=== PATIENT | female | born 1945 | race Caucasian/White ===

== ENCOUNTER 2024-02-17 14:00 | Inpatient (IN) | payer MEDICARE, SELFPAY ==
[2024-02-17] VITALS (26 sets, daily range): BP systolic 78–119; BP diastolic 51–98; BMI 28.0; BMI 27.1
[2024-02-17 10:49] LABS: % Basophils 0.4 % (0-2); % Eosinophils 2.1 % (0-6); % Immature Granulocytes 0.4 % (0-0.5); % Monocytes 7.9 % (1.7-9.3); % Neutrophils 54.2 % (42.2-75.2); Absolute Eosinophils 0.1 10^3/uL (0-0.7); Absolute Monocytes 0.5 10^3/uL (0.1-0.6); Absolute Neutrophils 3.1 10^3/uL (1.4-6.5); Hematocrit 40.7 % (37.0-47.0); Mean Corp Hgb Conc. 34.4 g/dL (33.0-37.0); Mean Corpuscular Volume 87.2 fL (81.0-99.0); Mean Platelet Volume 9.7 fL (7.4-10.4); Nucleated Red Blood Cells % 0 %; Platelet Count 192 10^3/uL (130-400); Red Blood Cell Count 4.67 10^6/uL (4.20-5.40); Red Cell Dist. Width 13.7 % (11.5-14.5); White Blood Cell Count 5.7 10^3/uL (4.8-10.8)
[2024-02-17 11:22] LABS: ALT (SGPT) 26 U/L (0-35); AST (SGOT) 25 U/L (14-36); Albumin 4.5 g/dl (3.5-5.0); Alkaline Phosphatase 43 U/L (38-126); Blood Urea Nitrogen 21 mg/dl (7-17); Calcium 9.4 mg/dl (8.4-10.2); Carbon Dioxide 22 mmol/L (22-30); Chloride 109 mmol/L (98-107); Estimated Creatinine Clearance 44 ml/min; Glucose 107 mg/dl (70-99); Potassium 4.2 mmol/L (3.5-5.1); Sodium 144 mmol/L (135-145); Total Bilirubin 0.8 mg/dl (0.2-1.3); eGFR > 60.00
--- NOTE | 2024-02-17 11:31 | ED.GENMED ---
History of Present Illness
General
Chief Complaint: Chest Pain
Source: patient
Time Seen by Provider: 02/17/24 11:11
History of Present Illness
History of Present Illness:
78-year-old female presents to the emergency room complaining of chest discomfort. Symptoms began about 30 minutes ago. Symptoms are much better at this time. Denies any patient is not aware of a rapid heart rate. Associated nausea or shortness
of breath. Typically patient is able to perform daily activities without any difficulty. No known cardiac disease. She takes only a prescription for heartburn but no other medications.
Phy Exam
Physical Exam
Physical Exam:
General: Awake, Alert, Oriented X3. No acute distress.
Vitals: unremarkable
Head: Atraumatic
Eyes: Pupils equal, EOMI
Throat: Airway intact, no exudates
Neck: Trachea midline
Lungs: Clear and equal b/l
Heart: Tachycardic, irregular rate, no murmurs
Abd: Soft, Nontender, No pulsatile mass
Neuro: Nonfocal
Skin: Warm, dry, no rash
Extremities: pulses equal b/l, no edema
Scores
Heart Score for Chest Pain Patients
STEMI patient?: Not applicable
Course
Orders/Labs/Results
Orders:
Orders
02/17/24 10:07
EKG [Electrocardiogram (*1)] Urgent
Reason for Study: Chest Pain
EKG- Treatment ONCE
02/17/24 10:40
Complete Blood Count/With Diff Urgent
Comprehensive Metabolic Panel Urgent
02/17/24 11:30
Diltiazem 125 mg/125 ml Nss [Cardizem] 125 mg in 125 ml IV NOW
Initial dose in mg/hr, then titrate:: 5
Titrate to keep:: Heart rate 80-100 bpm
Titrate by mg/hr:: 5 mg/hr
Frequency of titrations (minutes):: 15
Maximum dose in mg/hr:: 15
Diltiazem HCl [Cardizem] 15 mg IV NOW STA
02/17/24 11:33
CR Chest - 2 Views Urgent
Comment:
Reason For Exam: chest pain
02/17/24 11:38
Troponin I Urgent
02/17/24 13:03
Apixaban [Eliquis] 5 mg PO NOW STA
02/17/24 13:31
Admit/Transfer Patient As Directed
Co-Sign Provider:
Level of Care: Inpatient admission
Assign to:: IVU
Physician / Group: derek
Diagnosis: atrial fib with RVR
Reason for Hospitalization: atrial fib with RVR
Expected length of stay greater than two midnights?: Yes
ELOS- Estimated Length of Stay in days: 3
I certify the patient meets the requirements for IP care: Yes
PRN Pain Medication Management As Directed
May give lesser potent ordered pain med per pt: Yes
preference::
Protocol:: Medication orders for pain may be administered in a
manner that supports deferring to patient preference
when the pt is:
- Requesting an ordered lesser potent pain medication.
Least to most potent pain medications are defined
as: acetaminophen < NSAID < tramadol < opioids
(morphine, oxycodone, hydromorphone).
- Requesting a lesser dose of the same medication IF
ORDERED.
- Requesting a less intrusive route of administration
if both routes are prescribed by the provider (PO <
IV).
02/17/24 13:32
Code Status As Directed
Resuscitation Status: Full Code
Abnormal Lab Results
02/17/24
10:40
Chloride 109 H mmol/L
(98-107)
BUN 21 H mg/dl
(7-17)
Glucose 107 H mg/dl
(70-99)
02/17/24 10:40
02/17/24 10:40
Vital Signs
Initial and Last Documented VS:
Initial Vital Signs
Temp Pulse Resp BP Pulse Ox
98.2 F 125 18 98/59 98
02/17/24 10:15 02/17/24 10:15 02/17/24 10:15 02/17/24 10:15 02/17/24 10:15
Last Documented Vital Signs
Temp Pulse Resp BP Pulse Ox
98.2 F 83 18 92/59 98
02/17/24 10:15 02/17/24 14:30 02/17/24 14:30 02/17/24 14:30 02/17/24 10:15
MDM/Problems Addressed
Differential Diagnosis Includes:
Atrial fibrillation, hydration
MDM/Problems Addressed:
Patient presents with atrial fibrillation with rapid ventricular response. Patient is not anticoagulated. Patient started on Cardizem with adequate heart rate control. 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
believe she is a good candidate for outpatient management. Will hospitalize for rate control, cardiac evaluation, potential cardioversion.
*Radiology
Radiology exam reviewed: radiology read reviewed
*Pulse Oximetry
Patient hypoxic: no
*EKG
Interpreted by ED Provider?: Yes
EKG Intrepretation Time: 01:33
Interpretation: abnormal
Heart Rate: 133
Rate: tachycardiac
Rhythm: a-fib
QRS Pattern: normal QRS
Ischemia: non-specific ST changes
*Neurodiagnostic Technician Interpretation
Rate: tachycardiac
Interpretation: abnormal
Rhythm: a-fib
*Critical Care Note
Total Time (30-74mins, 75-104mins- exclusive of procedures): 35 min
comment:
Critical care statement: A total of 35 minutes of critical care time was provided for this patient. This includes management of unstable vital signs, evaluation of the patient at bedside, reviewing the patient's pertinent medical records, discussion
with consultants, review of old EKGs and review of pertinent medical records. This time with separate from time utilized to perform the aforementioned documented procedures
Patient Management
Social determinants of health affecting care: Poor outpatient follow-up
ED Attending Note
-
Portions of this chart may have been created with voice recognition software.� Occasional wrong word or��sound alike� substitutions may have occurred due to the inherent limitations of voice recognition software.
Discharge Plan
Departure
Patient Disposition: Admit
Date of Disposition: 02/17/24
Time of Disposition: 13:04
Admit to: Telemetry
Presentation/result/management discussed w/ accepting MD/DO: Hospitalist
Condition: Fair
Discharge Problem:
Atrial fibrillation with rapid ventricular response
Interventions
Interventions:
*Risk Screen - Suicide Last Done: 02/17/24 10:43
*General Assessment Last Done: 02/17/24 10:43
*Neglect/Abuse Screening Last Done: 02/17/24 10:43
ED- Fall Risk Assessment Last Done: 02/17/24 14:53
*ED COVID-19 Vaccine History Last Done: 02/17/24 10:43
*Nursing Disposition Last Done: 02/17/24 14:53
ED- Cardiac Assessment Last Done: 02/17/24 10:42
[2024-02-17] MEDS: CARDIZEM 15 MG IV (11:36)
[2024-02-17] MEDS: CARDIZEM 125 IV (11:37)
[2024-02-17 12:08] LABS: Troponin I < 0.012 ng/ml
--- NOTE | 2024-02-17 13:12 | HPS.HSE ---
Family Physician
-
Family Physician: Yanelis Lin
Chief Complaint
-
chest pain
History of Present Illness
78-year-old female with PMH for GERD, aortic aneurysm presents to the emergency room complaining of mid sternum chest pressure which later radiated to her her left arm and shoulder today morning. patient stated nauseous and being sweaty. Patient
complained of weakness and dizzy . Denies any patient is not aware of a rapid heart rate. Patient denies any short of breath. Denied palpitation. Patient denied headache. Patient denied any fever, chills, runny nose, congestion, cough. Patient
denied any abdominal pain, diarrhea. Patient denied dysuria hematuria.
On arrival patient was noted in A-fib with RVR. Initiated on Cardizem drip. Admitting for further management
Medical History
Past Medical History
Past Medical History: Reports Other
Additional Past Medical History:
GERD
Hypothyroidism
Past Surgical History: Reports Other
Additional Past Surgical History:
Hysterectomy appendectomy
Cyst removed from left breast
Social History
Tobacco: Non-smoker
Alcohol: None
Drug: None
Personal:
Living: With Family
Family History
Family History: Other (Mother with heart attack)
Allergies / Home Medications
Allergies reflects when Allergies were last updated in [facility].
Home Medications with original date entered in [facility]
Allergy/Medication List:
Allergies
Allergy/AdvReac Type Severity Reaction Status Date / Time
latex Allergy Unknown Rash Verified 02/17/24 10:20
Review of Systems
-
Constitutional: Reports No Symptoms
EENT: Reports No Symptoms
Respiratory: Reports No Symptoms
Cardiac: Reports Chest Pain and Diaphoresis
Abdomen/GI: Reports No Symptoms
: Reports No Symptoms
Musculoskeletal: Reports No Symptoms
Skin: Reports No Symptoms
Neurological: Reports Dizzy
Endocrine: Reports No Symptoms
Hematologic/Lymphatic: Reports No Symptoms
Psych: Reports No Symptoms
Physical Exam
Vital Signs
Vital Signs
Temp Pulse Resp BP Pulse Ox
98.2 F 98 17 82/61 98
02/17/24 10:15 02/17/24 13:01 02/17/24 13:01 02/17/24 13:01 02/17/24 10:15
Physical Exam
General: Well Developed, Well Nourished and No Apparent Distress
HEENT: NormoCephalic, Moist mucous membranes and Atraumatic
Respiratory: Clear
Cardiac: S1/S2 and Regular Rhythm; No Murmur or Rub
GI: Soft, Non Tender, Non Distended and Normal Bowel Sounds; No Organomegaly
Rectal: Deferred by Provider
Musculoskeletal: No Clubbing, No Cyanosis and No Edema
Skin: No Rash
Neuro: AO x 3 and Nonfocal/grossly intact
Psych: Calm
Laboratory Results
-
02/17/24 10:40
02/17/24 10:40
Laboratory Results
Total Bilirubin 0.8 mg/dl (0.2-1.3) 02/17/24 10:40
AST 25 U/L (14-36) 02/17/24 10:40
ALT 26 U/L (0-35) 02/17/24 10:40
Alkaline Phosphatase 43 U/L (38-126) 02/17/24 10:40
Troponin I < 0.012 ng/ml 02/17/24 11:38
Data Reviewed
-
CT Scan: Report Reviewed by me
Lab Data: Labs Reviewed by me
Impression/Plan
-
# New onset A-fib
-EKG with A-fib with RVR
-Cardizem drip continued
-eliquis continued
-Will obtain TSH level and echocardiogram
-Cardiology consulted
# GERD
-PPI continued
# DVT prophylaxis
-Heparin drip
# CODE STATUS
-Full code
[2024-02-17] MEDS: ELIQUIS 5 MG PO ×2 (13:22→19:31)
--- NOTE | 2024-02-17 14:02 | W.PN.UPDATE ---
Update Note
Progress Note Update
This is an addendum to the H&P written by Keena Briones on 02/17/2024.� Patient seen and examined independently with [employer].
78-year-old female past medical history of aortic aneurysm, GERD, presenting with chest pressure radiating to her arms associated with dizziness and sweating.
She presents to the emergency room with new onset atrial fibrillation with RVR with heart rate of 133 on EKG.� She was started on Cardizem drip.� Troponin negative.� Chest x-ray negative.
[id number] score of 3 due to age and sex. Check TSH, echo, trend troponins.��Eliquis�started.� Cardiology consulted.
[2024-02-17 17:13] LABS: TSH Reflex To Free T4 0.82 uIU/ml (0.47-4.68)
--- NOTE | 2024-02-17 17:16 | PTCARENOTE ---
Patient HR with ambulation to BR 123-140 AFib. Patient is asymptomatic.
--- NOTE | 2024-02-17 18:00 | PTCARENOTE ---
Troponin 0.447, physician made aware.
[2024-02-17 18:25] LABS: Troponin I 0.447 ng/ml
[2024-02-17] MEDS: NSS 500 IV (20:18)
--- NOTE | 2024-02-17 22:35 | PTCARENOTE ---
Received pt at change of shift. Afib on the monitor, HR in the 100-120s. Pts BP 79/58 with no symptoms. Pt instructed to ring call shaffer if she needs to get out of bed, IV Cardizem put in standby. House provider notified, order for IV fluids
obtained. Cardizem resumed at 5mg per hour at 2030. Pt remains in afib in the 90s, last BP at 2200 is 87/53. No complaints from pt at this time, call shaffer within reach
--- NOTE | 2024-02-17 23:27 | PTCARENOTE ---
Patients BP 81/59 with no symptoms. Afib controlled with HR under 100. Cardizem put on standby. IV fluids still infusing
[2024-02-17 23:56] LABS: Troponin I 0.304 ng/ml
[2024-02-18] VITALS (14 sets, daily range): BP systolic 85–121; BP diastolic 52–77
[2024-02-18] MEDS: NSS IV ×2 (03:38→09:42)
[2024-02-18 06:15] LABS: Blood Urea Nitrogen 26 mg/dl (7-17); Calcium 8.6 mg/dl (8.4-10.2); Carbon Dioxide 19 mmol/L (22-30); Chloride 114 mmol/L (98-107); Estimated Creatinine Clearance 58 ml/min; Glucose 95 mg/dl (70-99); HDL Cholesterol 62 mg/dl; LDL Cholesterol, Calculated 90 mg/dl; Potassium 4.4 mmol/L (3.5-5.1); Sodium 145 mmol/L (135-145); Total Cholesterol 170 mg/dl (50-199); Triglyceride 93 mg/dl (10-149); Very Low Density Lipoprotein 18 mg/dl (0-30); eGFR > 60.00
--- NOTE | 2024-02-18 06:46 | W.PN.HOSP.TC ---
Today's Communication/Plan
-
f/w cardiology recommendation
Low Bp, but no symptoms
Assessment / Plan
Assessment / Plan
Physical Exam
General: Well Developed, Well Nourished and No Apparent Distress
HEENT: NormoCephalic, Moist mucous membranes and Atraumatic
Respiratory: Clear
Cardiac: S1/S2 and Regular Rhythm; No Murmur or Rub
GI: Soft, Non Tender, Non Distended and Normal Bowel Sounds; No Organomegaly
Rectal: Deferred by Provider
Musculoskeletal: No Clubbing, No Cyanosis and No Edema
Skin: No Rash
Neuro: AO x 3 and Nonfocal/grossly intact
Psych: Calm
78-year-old female presented with chest discomfort, was found to have atrial fibrillation
#New onset atrial fibrillation.
Patient feels better this morning. No chest pain. She still on Cardizem drip with heart rate around 110-90.
Initial troponin is negative but later trended up to 0.44, then down to 0.304
Patient denied history of cardiac disease, normal TSH.
Low blood pressure with systolic around 90
Order echocardiogram
Started on Eliquis in the ER, might need to hold if a cardiac procedure is planned
Will need further workup
Follow-up with cardiology recommendation
# GERD
-PPI continued
# DVT prophylaxis
-Heparin drip
# CODE STATUS
-Full code
Total time spent to see the patient on the floor, examine the patient, review data and lab results, discuss treatment plan with patient, nursing staff around 55 minutes
Anticipated Discharge: 24 - 48 hours
Subjective/Interval History
-
Date of Service: February 18, 2024
No chest pain
No sob
No abd pain
Objective Data
-
Labs:
Laboratory Results
02/18/24
04:41
WBC Pending
Hgb Pending
Hct Pending
Plt Count Pending
Sodium 145
Potassium 4.4
Chloride 114 H
Carbon Dioxide 19 L
BUN 26 H
Creatinine 0.7
Glucose 95
Calcium 8.6
Vital Signs:
Vital Signs
Temp Pulse Resp BP Pulse Ox
98.3 F 85 18 88/57 93
02/17/24 23:04 02/18/24 04:00 02/17/24 23:04 02/18/24 02:00 02/17/24 23:04
I&O
02/16/24 02/17/24 02/18/24
06:59 06:59 06:59
Intake Total 740 / 740
Balance 740 / 740
[2024-02-18] MEDS: PEPCID 20 MG PO ×2 (08:14→19:58)
[2024-02-18] MEDS: ELIQUIS 5 MG PO ×2 (08:14→19:36)
[2024-02-18 09:03] LABS: Hematocrit 38.1 % (37.0-47.0); Hemoglobin 13.1 g/dL (12.0-16.0); Mean Corp Hgb Conc. 34.4 g/dL (33.0-37.0); Mean Corpuscular Volume 90.1 fL (81.0-99.0); Mean Platelet Volume 10.4 fL (7.4-10.4); Platelet Count 166 10^3/uL (130-400); Red Blood Cell Count 4.23 10^6/uL (4.20-5.40); Red Cell Dist. Width 13.9 % (11.5-14.5); White Blood Cell Count 8.2 10^3/uL (4.8-10.8)
--- NOTE | 2024-02-18 10:41 | PTCARENOTE ---
Pt converted to NSR, HR 70's. EKG obtained. Dr Estrada notified. Pt to remain on 5mg IV Cardizem gtt at this time. BP 102/65.
--- NOTE | 2024-02-18 11:46 | CON.CAR ---
Consultation
Consultation Request
Date/Time Consultation Requested: 02/17/2024 1501
Date/Time Consultation Performed: 02/18/2024 1000
Requesting Provider: BAR Shah
Performing Provider: Grady Murdock DO
Reason for Consultation: AF, CP
Medical History
-
Chief Complaint: AF, CP
History of Present Illness:
Patient is a pleasant 78-year-old female with a past medical history significant for dyslipidemia, metabolic syndrome, thoracic aortic ectasia measuring 41 mm on CTA 2019 who presents with acute onset chest pain, palpitations, shortness of breath,
lightheadedness, and fatigue. Patient reports that she has not experienced symptoms like this before. Patient notes that she was in otherwise good health however experienced sudden onset symptoms. She notes that the symptoms were constant. No
aggravating or alleviating factors associated with the symptoms. Patient denied PND, orthopnea, edema, or syncope. Patient proceeded to ER for further evaluation. EKG initially noted AF RVR. Initial EKG undetectable however increased to 0.447
downtrending to 0.304. Patient with spontaneous return to sinus rhythm on 02/18/2024. In discussion with patient, following judaism of sinus rhythm, patient reported resolution of all symptoms. Patient currently resting comfortably without
complaint. Patient denies chest pain, shortness of breath, lightheadedness, dizziness, near-syncope, syncope, PND, with apnea, edema, or weakness.
Past Medical History
Past Medical History: Other (See HPI)
Social History
Tobacco: Non-Smoker
Alcohol: None
Drug: None
Personal:
Living: With Family
Employment: Retired
Family History
Family History: Reviewed & Not Pertinent
Allergies / Home Medications
Allergy/AdvReac Type Severity Reaction Status Date / Time
latex Allergy Unknown Rash Verified 02/17/24 10:20
�Medication �Instructions �Recorded �Confirmed �Type
Berberine 1 tab PO DAILY Supplement 02/17/24 02/17/24 History
Dha 1 tab PO DAILY Supplement 02/17/24 02/17/24 History
acetylcysteine 600 mg capsule (NAC) 600 mg PO DAILY Supplement 02/17/24 02/17/24 History
alpha lipoic acid 100 mg capsule 100 mg PO DAILY Supplement 02/17/24 02/17/24 History
calcium citrate 200 mg PO DAILY Supplement 02/17/24 02/17/24 History
cyanocobalamin (vitamin B-12) 1,000 mcg PO DAILY Supplement 02/17/24 02/17/24 History
1,000 mcg tablet
famotidine 20 mg tablet 20 mg PO BID Gastrointestinal Issue 02/17/24 02/17/24 History
fexofenadine 180 mg tablet 180 mg PO DAILY Allergies 02/17/24 02/17/24 History
magnesium gluconate 27 mg 27 mg PO DAILY Electrolyte 02/17/24 02/17/24 History
magnesium (500 mg) tablet Repletion
milk thistle 1 tab PO DAILY Supplement 02/17/24 02/17/24 History
vitamin B complex 1 tab PO DAILY Supplement 02/17/24 02/17/24 History
vitamin D3 1,250 mcg (50,000 1 cap PO DAILY Supplement 02/17/24 02/17/24 History
unit)-vitamin K2 200 mcg capsule
zolpidem 10 mg tablet 10 mg PO HSPRN PRN sleep 02/17/24 02/17/24 History
Review of Systems
-
History Source: Patient
All other systems: Negative unless noted
Constitutional: Fatigue
EENT: No Symptoms
Respiratory: No Symptoms
Cardiac: Chest Pain and Palpitations
Abdomen/GI: No Symptoms
: No Symptoms
Musculoskeletal: No Symptoms
Skin: No Symptoms
Neurological: No Symptoms
Endocrine: No Symptoms
Hematologic/Lymphatic: No Symptoms
Physical Exam
Vital Signs
Temp Pulse Resp BP Pulse Ox
98.5 F 117 20 90/59 95
02/18/24 11:18 02/18/24 08:00 02/18/24 11:18 02/18/24 06:00 02/18/24 11:18
Lab Results
02/18/24 04:41
02/18/24 04:41
Troponin I 0.304 ng/ml H* D 02/17/24 23:17
Physical Exam
General: Well Developed, Well Nourished, No Apparent Distress and Comfortable
HEENT: Normocephalic, Anicteric and Moist Mucous Membranes
Respiratory: Clear and Non Labored Respirations
Cardiac: S1/S2, Regular Rhythm and Other (No murmur, rub, gallop)
Breast: Deferred by me
GI: Soft, Non Tender, Non Distended and Normal Bowel Sounds
Rectal: Deferred by Provider
Musculoskeletal: No Clubbing, No Cyanosis and No Edema
Skin: Warm and Dry
Neuro: Awake, Alert, Oriented and No Motor Deficits
Psych: Calm
Impression / Plan
-
PCP: Yanelis Moore, DO
Cardiology: [facility] ([place]); establishing with Stanton Augustin MD ( follows with Stanton Augustin).
.
Impression:
Paroxysmal atrial fibrillation, symptomatic
� [id number]: 3 (age, gender). Started on Eliquis 5 mg twice daily for stroke risk reduction in patient
� No prior rate or rhythm controlling agents
� TSH normal
� No reported sleep apnea testing
� No alcohol use
Atypical chest pain, likely related to above
� EKG AF, repeat sinus rhythm without significant ST-T abnormality
� Troponin peak 0.4
� Prior stress testing 2021 no evidence of ischemia normal LV systolic function
Hyperlipidemia, on statin
Obesity
GERD
Recommendations:
� 2D echocardiogram to assess cardiac size, shape, function, and valvular anatomy in the setting of new onset atrial fibrillation as well as elevated troponin
� Outpatient stress testing
� Okay to continue oral anticoagulation with Eliquis
� Metoprolol succinate 25 mg daily, stop diltiazem drip
� Monitor on telemetry
Data Reviewed
-
EKG: Tracing Personally Visualized and interpreted
Radiology: Report Reviewed by me
Medical Tests (Nuc Med, Echo etc): Report Reviewed by me
Labs: Labs Reviewed by me
Old Records: Reviewed
[2024-02-18] MEDS: TOPROL XL 12.5 MG PO (15:33)
--- NOTE | 2024-02-18 23:55 | PTCARENOTE ---
Received patient at change of shift. SR on the monitor, HR in the 60s, VSS. Pt requested Pepcid which she takes BID at home, order obtained from MONAE Gomez. No other complaints from pt at this time, call shaffer within reach.
[2024-02-19 04:51] VITALS: BP 124/71
[2024-02-19 04:51] LABS: Hepatitis C Antibody Negative (Negative)
[2024-02-19 05:30] LABS: Blood Urea Nitrogen 27 mg/dl (7-17); Calcium 8.5 mg/dl (8.4-10.2); Carbon Dioxide 21 mmol/L (22-30); Chloride 111 mmol/L (98-107); Estimated Creatinine Clearance 68 ml/min; Glucose 101 mg/dl (70-99); Potassium 4.2 mmol/L (3.5-5.1); Sodium 144 mmol/L (135-145); eGFR > 60.00
[2024-02-19 05:42] LABS: Hematocrit 37.9 % (37.0-47.0); Hemoglobin 12.8 g/dL (12.0-16.0); Mean Corp Hgb Conc. 33.8 g/dL (33.0-37.0); Mean Corpuscular Hgb 30.8 pg (27.0-31.0); Mean Corpuscular Volume 91.3 fL (81.0-99.0); Mean Platelet Volume 9.8 fL (7.4-10.4); Platelet Count 150 10^3/uL (130-400); Red Blood Cell Count 4.15 10^6/uL (4.20-5.40); Red Cell Dist. Width 13.7 % (11.5-14.5); White Blood Cell Count 5.6 10^3/uL (4.8-10.8)
[2024-02-19 08:05] VITALS: BP 125/76
--- NOTE | 2024-02-19 08:29 | W.PN.HOSP.TC ---
Today's Communication/Plan
-
Discharge today
Assessment / Plan
Assessment / Plan
Physical Exam
General: Well Developed, Well Nourished and No Apparent Distress
HEENT: Normocephalic, Moist mucous membranes and Atraumatic
Respiratory: Clear
Cardiac: S1/S2 and Regular Rhythm
GI: Soft, Non Tender, Non Distended and Normal Bowel Sounds
Musculoskeletal: No Cyanosis and No Edema
Skin: Warm. Dry.
Neuro: AAO x 3 and Nonfocal/grossly intact
Psych: Calm
Assessment/Plan
78-year-old female presented with chest discomfort, was found to have atrial fibrillation
#New-onset paroxysmal atrial fibrillation
#Chest Pain - RESOLVED
#Elevated Troponin
-Continue Toprol XL 25 mg daily
-Start Xarelto 20 mg daily (CrCl 68) 02/19/24 PM giving higher cost of Eliquis
-Follow-up with assembled wood products repairer Dr. Augustin
-Stress test by outpatient cardiology prior to travel
-Outpatient ZEYNEP evaluation -- follow-up with pulmonary
#Hyperlipidemia
-2256, Verito Aguilar, 78 F came in with palpitations shortness of breath, was found to have new onset atrial fibrillation. She was started on IV Cardizem drip but later changed to Toprol by cardiology. Plan to do echocardiogram because of mild
elevation in troponin.
# GERD
-PPI continued
# DVT prophylaxis
-Heparin drip
# CODE STATUS
-Full code
More than 30 minutes spent in discharge including
Final examination of the patient
Summarizing hospital stay
Instructions for continuing care to all relevant caregivers
Preparation of discharge records, prescriptions, and referral forms
Total time spent (in minutes): 36
Anticipated Discharge: Today
Subjective/Interval History
-
Date of Service: February 19, 2024
Patient was seen and examined. She denied any chest pain, shortness of breath or any other complaints.
Objective Data
-
Labs:
Laboratory Results
02/19/24
04:58
WBC 5.6
Hgb 12.8
Hct 37.9
Plt Count 150
Sodium 144
Potassium 4.2
Chloride 111 H
Carbon Dioxide 21 L
BUN 27 H
Creatinine 0.6
Glucose 101 H
Calcium 8.5
Vital Signs:
Vital Signs
Temp Pulse Resp BP Pulse Ox
97.8 F 67 14 125/76 96
02/19/24 08:11 02/19/24 08:05 02/19/24 08:11 02/19/24 08:05 02/19/24 08:11
I&O
02/18/24 02/19/24 02/20/24
06:59 06:59 06:59
Intake Total 740 / 740
Balance 740 / 740
[2024-02-19 08:40] VITALS: BMI 27.3
[2024-02-19] MEDS: ELIQUIS 5 MG PO (08:47)
[2024-02-19] MEDS: TOPROL XL 25 MG PO (08:47)
[2024-02-19] MEDS: PEPCID 20 MG PO (08:48)
--- NOTE | 2024-02-19 11:40 | CM ---
Chart reviewed. Patient is independent of ADLS, lives with her in a [address], 2 LORI, 0 DME. Plan is for the patient to return home. CM to follow
--- NOTE | 2024-02-19 11:40 | CM ---
Pricing on Eliquis through the patient's [employer], ID # [id number], is $282. Patient has a $595 deductible. Once the deductible is met she will pay $141. Patient's said he takes Xarelto and only pays $100. I notified Jo Albert.
Prescription being changed. I placed a free 30 day coupon in the patient's red discharge folder.
[2024-02-19 12:09] VITALS: BP 133/75
--- NOTE | 2024-02-19 13:02 | W.PN.CARDCBS ---
Addendum entered and electronically signed by Ryan Mayo MD 02/19/24 18:21:
78-year-old woman admitted with chest pain, palpitations, dyspnea is, lightheadedness and found to be in atrial fibrillation with a rapid ventricular response. Now in sinus rhythm. Informs me she plans to go to [facility] in 9 days.Troponin was 0.44
PMH: Hyperlipidemia, metabolic syndrome, aortic ectasia,
Surgical history: Noncontributory
SH: Non-smoker no alcohol,
FH: Unremarkable
Allergies: Latex
Outpatient meds, numerous nutritionals and supplements
Current meds: Apixaban 5 mg twice daily, metoprolol ER 25 mg a day, Pepcid
ROS negative except as above
125/76, pulse 76, respiratory rate 14, sats 96% no acute distress, head neck exam unremarkable, lungs are clear, cardiac exam within normal limits abdomen benign extremities without edema distal pulses intact
Hemoglobin 12.8, white count 5.6, platelets 150, BUN and creatinine 27 and 0.6, potassium 4.2
ECG: Now normal sinus rhythm, nonspecific T wave changes, on admission ECG showed atrial fibrillation with rapid ventricular response
LDL is 90, total cholesterol is 170, HDL is 62, BUN and creatinine 27 and 0.6, normal TSH, troponin 0.447, normal CBC
Echo: Small left ventricle mild LVH, mild MR, trace AI, normal right heart, normal pulmonary artery pressure
Impression:
Paroxysmal atrial fibrillation
Elevated troponin
Hypercholesterolemia
Possible obstructive sleep apnea
Plan:
She presents now with new onset atrial fibrillation. [id number] is 3. She is now on apixaban 5 mg twice daily and metoprolol ER 25 mg daily.
Of note, her troponin is elevated to 0.447. Unclear whether this is simply a result of rapid ventricular response or if she might have underlying obstructive CAD. LDL cholesterol is 90.
.
She is now in sinus rhythm, feeling comfortable.
I think it would be reasonable to discharge her and arrange for an exercise imaging study later in the week, preferably sestamibi but stress echocardiography also an option.
.
From my standpoint she could be discharged later today. We will arrange for outpatient follow-up with Dr. Augustin and arrange for stress testing.
.
Will discharge on Xarelto which is more affordable in her case.
.
I told her that I would not object to her traveling if she remains stable over the next week.
Original Note:
Today's Communication / Plan
-
Will arrange outpatient stress test
New to Eliquis, but Xarelto is cheaper. Stop Eliquis and change to Xarelto 20 mg daily starting tonight.
New to Toprol XL
Will arrange f/u with cardiology
Impression / Plan
-
PCP: Yanelis Moore, DO
Cardiology: Jimi ([place]); establishing with Stanton Augustin MD ( follows with Stanton Augustin).
.
Impression:
Admitted with newly diagnosed chest pain and paroxysmal Afib 02/17/24
Chest pain
Elevated Troponin
Paroxysmal Afib
converted to SR 02/18/24 AM
New start to chronic Eliquis OAC
Hyperlipidemia
Echo 02/19/24: EF 65-70%, mild MR, trace aortic regurgitation
Plan:
-Patient with new Afib this admission that spontaneously converted to SR. Remains in SR 02/19/24. New to Toprol XL 25 mg daily this admission.
-New to Eliquis 5 mg BID (age 78, Cre 0.6, wt 65.5 kg). Appreciate help of CM on checking cost, of note Eliquis is $140/month, but patient's takes Xarelto and it's less expensive at $100/month so will switch patient. Start Xarelto 20 mg
daily (CrCl 68) 02/19/24 PM.
-TSH 0.82
-Recommend outpatient ZEYNEP eval
-Patient would like to follow up with her 's EP, Dr. Augustin, will arrange.
-Patient also with chest pain on admission that seemed to improve with conversion to SR. Troponin did elevate 0.447 though so recommend an exercise nuclear stress test. Patient is leaving for [facility] in 9 days, will arrange for stress test prior to
travel.
-Prior stress testing 2021 no evidence of ischemia normal LV systolic function.
-LDL 90 without statin.
-EF normal with only mild MR by echo
-Patient is otherwise stable for d/c to home.
Progress Note - Electrocardiographic Technician
Subjective
Date of Service: February 19, 2024
No more chest pain
Objective
Labs:
02/19/24 04:58
02/19/24 04:58
Labs
Hgb 12.8 g/dL (12.0-16.0) 02/19/24 04:58
Hct 37.9 % (37.0-47.0) 02/19/24 04:58
Plt Count 150 10^3/uL (130-400) 02/19/24 04:58
Sodium 144 mmol/L (135-145) 02/19/24 04:58
Potassium 4.2 mmol/L (3.5-5.1) 02/19/24 04:58
BUN 27 mg/dl (7-17) H 02/19/24 04:58
Creatinine 0.6 mg/dL (0.6-1.0) 02/19/24 04:58
Glucose 101 mg/dl (70-99) H 02/19/24 04:58
Troponins
02/17/24 02/17/24 02/17/24
11:38 17:52 23:17
Troponin I < 0.012 0.447 H* D 0.304 H* D
Vital Signs and I&O:
Vital Signs
Temp Pulse Resp BP Pulse Ox
98.2 F 57 18 125/76 95
02/19/24 12:09 02/19/24 10:00 02/19/24 12:09 02/19/24 08:05 02/19/24 12:09
Vital Signs
Temp Pulse Resp BP Pulse Ox
98.2 F 57 18 125/76 95
02/19/24 12:09 02/19/24 10:00 02/19/24 12:09 02/19/24 08:05 02/19/24 12:09
Intake & Output
02/17/24 02/18/24 02/19/24 02/20/24
06:59 06:59 06:59 06:59
Intake Total 740 / 740
Balance 740 / 740
Physical Exam
Physical Exam
GEN: AAOx3
HEENT: mmm
LUNGS: No audible wheeze
CV: SR on tele
ABD: ND
EXT: No edema
NEURO: Gross non-focal
SKIN: No rash
[2024-02-19 15:53] VITALS: BP 121/85
== END 2024-02-19 16:50 | disposition home or self-care (01) | DRG 310 ==
LOC: IVU 14:00
PROVIDERS: Registered Nurse; ADMITTING PHYSICIAN Hospitalist; ATTENDING PHYSICIAN Hospitalist; CONSULT PHYSICIAN Internal Medicine Cardiovascular Disease; EMERGENCY PHYSICIAN Emergency Medicine; FAMILY PHYSICIAN Family Medicine
DX: I48.0 Paroxysmal atrial fibrillation (principal); K21.9 Gastro-esophageal reflux disease without esophagitis; E78.5 Hyperlipidemia, unspecified; E66.9 Obesity, unspecified; Z68.27 Body mass index [BMI] 27.0-27.9, adult; Z79.01 Long term (current) use of anticoagulants
CPT/HCPCS: 71046; 80048; 80053; 80061; 83735; 84443; 84484; 85025; 85027; 86803; 93005; 93306; 96374; 99291

== ENCOUNTER → 2024-02-22 12:21 | Outpatient (REF) | payer MEDICARE, SELFPAY | LOC: DHCBC/DCA 12:21 | PROVIDERS: ATTENDING PHYSICIAN Internal Medicine Cardiovascular Disease; FAMILY PHYSICIAN Family Medicine | DX: R07.89 Other chest pain (principal); I48.0 Paroxysmal atrial fibrillation; R79.89 Other specified abnormal findings of blood chemistry | CPT/HCPCS: 78452; 93017; A9500 ==